=== PATIENT | female | born 2000 | race Two or more races ===

== ENCOUNTER 2025-01-31 12:37 | Emergency (ER) | payer OTHER ==
[~2025-01-31] VITALS: Ht 167.6 cm; Wt 59.4 kg
[2025-01-31 12:45] VITALS: RESP 18
[2025-01-31 12:57] VITALS: TEMP 97.9
--- NOTE | 2025-01-31 13:45 | DVH ---
INDICATION: thinks her IUD is dislodged/ pelvic pain TECHNIQUE: Multiple real-time grayscale transabdominal and transvaginal sonographic images along with color and duplex Doppler of the uterus and ovaries were obtained. COMPARISON: None FINDINGS: The uterus measures 7.0 x 3.7 x 4.1 cm. The endometrial stripe measures 0.3 cm. Intrauterin e device in satisfactory position. Right ovary measures 6.0 x 3.0 x 4.6 cm with normal Doppler color flow Left ovary measures 3.3 x 1.4 x 2.1 cm with normal Doppler color flow Apkb-qn-guwhbbux fluid in the pelvic cul-de-sac. IMPRESSION: Intrauterine device in satisfactory position.
[2025-01-31 14:06] LABS: Basophils # (auto) 0 10 ^3/uL (0-0.2); Basophils % (auto) 0.4 % (0.0-2.0); Eosinophils # (auto) 0 10 ^3/uL (0-0.8); Eosinophils % (auto) 0.2 % (0.0-7.0); Hematocrit 41.8 % (36.0-46.0); Hemoglobin 14.4 g/dL (12.2-16.2); Lymphocytes # (auto) 0.7 10 ^3/uL (0.4-5.4); Lymphocytes % (auto) 11.9 % (10.0-50.0); Mean Corpuscular Hemoglobin 31.1 pg (28.0-32.0); Mean Corpuscular Hgb Conc. 34.5 g/dL (32.0-36.0); Mean Corpuscular Volume 90.2 fL (80.0-100.0); Monocytes # (auto) 0.7 10 ^3/uL (0-1.3); Monocytes % (auto) 11.9 % (0.0-12.0); Neutrophils # (auto) 4.6 10 ^3/uL (1.6-8.6); Neutrophils % (auto) 75.6 % (37.0-80.0); Nucleated Red Blood Cells % 0.1 %; Platelet Count (auto) 94 10^3/uL (140-450); Red Blood Cells 4.63 10^6/uL (4.0-5.20); Red Cell Distribution Width 12.9 % (11.8-14.3); White Blood Cell 6.1 10^3/uL (4.4-10.8)
[2025-01-31 14:07] LABS: Urine Bacteria None Seen /hpf (None Seen)
[2025-01-31 14:14] LABS: Alanine Aminotransferase 14 U/L (7-40); Alkaline Phosphatase 62 U/L (46-116); Anion Gap 10 (5-15); Aspartate Aminotransferase 22 U/L (13-40); BUN/Creatinine Ratio 9.9 (10.0-20.0); Bilirubin, Total 0.9 mg/dL (0.2-1.0); Calcium 10.2 mg/dL (8.7-10.4); Carbon Dioxide 23 mmol/L (20-31); Chloride 106 mmol/L (98-107); Sodium 139 mmol/L (136-145)
[2025-01-31 14:15] LABS: Albumin 4.8 g/dL (3.2-4.8); Blood Urea Nitrogen 8 mg/dL (9-23); Glucose 71 mg/dL (74-106); Potassium 3.5 mmol/L (3.5-5.1)
[2025-01-31 14:19] LABS: Urine Blood Negative /uL (Negative); Urine Clarity Clear (Clear); Urine Color Yellow (Yellow); Urine Hyaline Cast FEW /lpf (0 - 2); Urine Mucus FEW (None Seen); Urine Protein, UAD TRACE (Negative); Urine Specific Gravity 1.022 (1.001-1.035); Urine Squamous Epithelial Cell FEW /hpf (<5); Urine Urobilinogen Normal (Negative); Urine WBC 2 /HPF (0-5)
[2025-01-31 14:27] LABS: Lipase 24 U/L (12-53)
--- NOTE | 2025-01-31 15:04 | ED.PDOC ---
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 - pt states she has been having suprapubic pain for the past 2 days - pt states she has had IUD placed in SEP 2024 and states last night PM, she states she felt the IUD had moved - pt states since, she has been having suprapubic pain, nausea, vomiting, and subjective fever - pt states she also recently had history of STD chlamydia and noted pain during intercourse last night - pt otherwise denies any other symptoms PMH: denies PSH: denies allergies: denies social history: denies ETOH , denies drug use, denies tobacco use Patient currently has a IUD HPI: Poor Historian. Nausea and vomiting yesterday but this has resolved today. She continues to have some nonspecific suprapubic discomfort constant nonradiating. Patient does not have any dysuria however she has suprapubic pain with defecation. Nausea and vomiting has already resolved yesterday. REVIEW OF SYSTEMS: CONSTITUTIONAL: Denies acute: fever, diaphoresis, chills, generalized weakness. HEAD: Denies acute: headache, photophobia Eyes: Denies acute: Double vision, vision loss, eye pain, eye discharge. EARS: Denies acute: tinnitus, hearing loss, ear discharge, ear pain, THROAT: Denies acute: sore throat, swelling, difficulty swallowing , pain with swallowing, change in voice. NECK: Denies acute: neck pain, neck swelling, stiff neck. HEART: Denies acute : chest pain, palpitations, LUNGS: Denies acute: SOB, wheezing, cough, hemoptysis ABDOMEN: Denies acute: diarrhea, melena , hematemesis, hematochezia SKIN: Denies acute: rash, redness, lesions, itchiness. EXTREMITIES: Denies acute: calf pain, numbness, tingling, weakness, denies pain in extremity. Denies acute: Low back pain. Neuro: Denies acute: focal neurological deficit, motor or sensory focal neurological deficit, tremors, seizure like activity, confusion, dizziness, change in mental status, loss of bowel or bladder function, cauda equina like symptoms. : Denies acute: dysuria, hematuria, flank pain, increase in urinary frequency. PSYCH: Denies acute: hallucination, suicidal ideation, homicidal ideation. FEMALE: Denies acute: abnormal vaginal bleeding, foul odor, unusual discharge. PHYSICAL EXAM: General: ----no----acute distress, awake and alert. Head: normocephalic, atraumatic. Neck: supple, trachea is midline, no swelling. Throat: Normal phonation. Eyes:, no erythema, no purulent discharge, no proptosis, no icterus. Heart: regular rate, regular rhythm, no significant murmur appreciated. Lungs: no apparent respiratory distress, Able to speak in full sentences. No wheezing, no rhonchi, no crackles. No stridors Clear to auscultation bilaterally. Abdomen: Suprapubic tender to palpation, non distended, soft, no guarding, no rebound, + bowel sounds. Neuro: Awake, Alert, oriented to name, self, situation, follows commands GCS=15. Speech is normal. Skin: no petechia, no purpura, no cyanosis, non-pale, not jaundice. Lower extremities: --no - Pitting edema no deformity, no focal swelling, no calf TTP. Makes eye contact. moves all four extremities. Face: no apparent facial droop. Ambulating in the ED independently. ED COURSE: Chief Complaint: Pelvic Pain Time Seen by MD: 15:03 Reviewed Notes: Medications, Allergies Allergies: Coded Allergies: NO KNOWN ALLERGIES (Unverified , 01/31/25) Information Source: Patient Mode of Arrival: Ambulatory Was a procedure done? 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) Vaginal Bleeding: Cervicitis, Myomatous Uterus Mass / Lesion: Bartholin Abscess, Bartholin Cyst, Perianal Abscess, Vaginitis - Bacterial, Vaginitis - Candidal Vaginal Discharge: Foreign Body, Physiologic Discharge, PID, Pinworms, , UTI, Vaginitis - Atrophic, Vaginitis - Bacterial, Vaginitis - Candidal, Vaginitis - Contact, Vaginitis - Herpes, Vaginitis - Trichomonas X-Ray, Labs, Meds, VS Vital Signs Date Time Temp Pulse Resp B/P (MAP) Pulse Ox O2 Delivery O2 Flow Rate FiO2 01/31/25 15:20 89 18 122/76 (91) 98 01/31/25 12:57 97.9 100 18 135/93 (107) 100 97.9 01/31/25 12:57 97.9 100 18 135/93 (107) 100 97.9 01/31/25 12:45 18 Room Air* 0 21 Lab Test 01/31/25 13:31 01/31/25 13:00 Range/Units White Blood Count 6.1 4.4-10.8 10^3/uL Red Blood Count 4.63 4.0-5.20 10^6/uL Hemoglobin 14.4 12.2-16.2 g/dL Hematocrit 41.8 36.0-46.0 % Mean Corpuscular Volume 90.2 80.0-100.0 fL Mean Corpuscular Hemoglobin 31.1 28.0-32.0 pg Mean Corpuscular Hemoglobin Concent 34.5 32.0-36.0 g/dL Red Cell Distribution Width 12.9 11.8-14.3 % Platelet Count 94 L 140-450 10^3/uL Mean Platelet Volume 9.9 6.9-10.8 fL Neutrophils (%) (Auto) 75.6 37.0-80.0 % Lymphocytes (%) (Auto) 11.9 10.0-50.0 % Monocytes (%) (Auto) 11.9 0.0-12.0 % Eosinophils (%) (Auto) 0.2 0.0-7.0 % Basophils (%) (Auto) 0.4 0.0-2.0 % Neutrophils # (Auto) 4.6 1.6-8.6 10 ^3/uL Lymphocytes # (Auto) 0.7 0.4-5.4 10 ^3/uL Monocytes # (Auto) 0.7 0-1.3 10 ^3/uL Eosinophils # (Auto) 0 0-0.8 10 ^3/uL Basophils # (Auto) 0 0-0.2 10 ^3/uL Nucleated Red Blood Cells 0.1 % Sodium Level 139 136-145 mmol/L Potassium Level 3.5 3.5-5.1 mmol/L Chloride Level 106 98-107 mmol/L Carbon Dioxide Level 23 20-31 mmol/L Anion Gap 10 5-15 Blood Urea Nitrogen 8 L 9-23 mg/dL Creatinine 0.81 0.550-1.02 mg/dL Glomerular Filtration Rate Calc 104 >90 mL/min BUN/Creatinine Ratio 9.9 L 10.0-20.0 Serum Glucose 71 L 74-106 mg/dL Lactic Acid Level 1.2 0.4-2.0 mmol/L Calcium Level 10.2 8.7-10.4 mg/dL Total Bilirubin 0.9 0.2-1.0 mg/dL Aspartate Amino Transferase (AST) 22 13-40 U/L Alanine Aminotransferase (ALT) 14 7-40 U/L Alkaline Phosphatase 62 46-116 U/L Total Protein 8.0 5.7-8.2 g/dL Albumin 4.8 3.2-4.8 g/dL Lipase 24 12-53 U/L Urine Color Yellow Yellow Urine Clarity Clear Clear Urine pH 6.0 5.0-9.0 Urine Specific [place] 1.022 1.001-1.035 Urine Protein Trace H Negative Urine Ketones 3+ H Negative Urine Blood Negative Negative /uL Urine Nitrite Negative Negative Urine Bilirubin Negative Negative Urine Urobilinogen Normal Negative mg/dL Urine Leukocyte Esterase Negative Negative /uL Urine RBC 1 0 - 4 /hpf Urine Microscopic WBC 2 0-5 /HPF Urine Squamous Epithelial Cells Few <5 /hpf Urine Bacteria None seen None Seen /hpf Urine Hyaline Casts Few 0 - 2 /lpf Urine Mucus Few None Seen Urine Glucose Normal Normal mg/dL Urine Test Negative Negative [place] [id number] Ph: [phone] DIAGNOSTIC IMAGING Diagnostic Imaging Report : [id number] Signed PATIENT: MARCELA EDWARDS ACCT: [id number] UNIT: [id number] : 2000 LOC: ER ROOM / BED: / AGE / SEX: 24 / F ADM STATUS: REG ER SERVICE 1325 ORDERING PHYSICIAN: MARGARITA LENTZ DO PROCEDURE(s): PELTR - TRANSVAGINAL US NON OB REASON: PELVIC PAIN ORDER NUMBER(s): [id number], ACCESSION NUMBER(s): [id number] INDICATION: thinks her IUD is dislodged/ pelvic pain TECHNIQUE: Multiple real-time grayscale transabdominal and transvaginal sonogr aphic images along with color and duplex Doppler of the uterus and ovaries were obtained. COMPARISON: None FINDINGS: The uterus measures 7.0 x 3.7 x 4.1 cm. The endometrial stripe measures 0.3 cm. Intrauterine device in satisfactory position. Right ovary measures 6.0 x 3.0 x 4.6 cm with normal Doppler color flow Left ovary measures 3.3 x 1.4 x 2.1 cm with normal Doppler color flow Mcsz-wy-kbpagvuk fluid in the pelvic cul-de-sac. IMPRESSION: Intrauterine device in satisfactory position. ATED BY: NORTH REYNA MD DICTATED DATE/TIME: 01/31/25 134 SIGNED BY: NORTH REYNA MD SIGNED DATE/TIME: 01/31/251341 CC: [place] [id number] Ph: [phone] DIAGNOSTIC IMAGING Diagnostic Imaging Report : [id number] Signed PATIENT: MARCLEA EDWARDS ACCT: [id number] UNIT: [id number] : 2000 LOC: ER ROOM / BED: / AGE / SEX: 24 / F ADM STATUS: REG ER SERVICE 1305 ORDERING PHYSICIAN: MARGARITA LENTZ DO PROCEDURE(s): PELUS - PELVIC REASON: thinks her IUD is dislodged/ pelvic pain ORDER NUMBER(s): [id number], ACCESSION NUMBER(s): [id number] INDICATION: thinks her IUD is dislodged/ pelvic pain TECHNIQUE: Multiple real-time grayscale transabdominal and transvaginal sonographic images along with color and duplex Doppler of the uterus and ovaries were obtained. COMPARISON: None FINDINGS: The uterus measures 7.0 x 3.7 x 4.1 cm. The endometrial stripe measures 0.3 cm. Intrauterine device in satisfactory position. Right ovary measures 6.0 x 3.0 x 4.6 cm with normal Doppler color flow Left ovary measures 3.3 x 1.4 x 2.1 cm with normal Doppler color flow Xqta-ss-mtsymguj fluid in the pelvic cul-de-sac. IMPRESSION: Intrauterine device in satisfactory position. ATED BY: NORTH REYNA MD DICTATED DATE/TIME: 01/31/251341 SIGNED BY: NORTH REYNA MD SIGNED DATE/TIME: 01/31/251341 CC: Time of 1ST Reevaluation: 00:00 Reevaluation 1ST: Unchanged Patient Education/Counseling: Diagnosis, Treatment Family Education/Counseling: No Family Present Comments Patient presented with the above HPI.--suprapubic/pelvic pain----workup was initiated. patient was found with the above mentioned diagnosis. the following medications were ordered: please refer to order lists of meds and tests obtained by myself Dr. Lentz. Patient ED course and VS have been stabilized. Patient has been reassessed in the ED and remained in a stable condition. Pertinent incidental findings were discussed with the patient and/or family. Patient/family voices understanding and is agreeable with plan. Patient has been observed in the ED adequate length of time to insure improvement/stability. Escalation of care considered: Consideration of escalation to observation or admission Patient is mainly concerned that her IUD is not in position. Imaging studies re veals no acute findings. Patient was DISCHARGED home in a stable condition. All the reports of any imaging studies that were ordered by myself were reviewed by myself. Departure 1 Departure Time of Disposition: 16:27 Impression: Primary Impression: Suprapubic pain, acute Disposition: 01 HOME / SELF CARE / HOMELESS Condition: Stable Additional Instructions: Additional instructions: You MUST follow-up with your primary care/family doctor in 1 to 2 days. If you are unable to see your primary care/family doctor, please return to our emergency room for re-assessment and re-evaluation in 1 to 2 days. Return to the emergency room here in our facility or to the nearest ER [facility] if your symptoms change or worsen. CONSULTATIONS: you MUST Follow-up for consultation as soon as possible with: -OB Gyne doctor in 1-2 days. Please call for appointment You MUST call the consultants office yourself to make an appointment. You may need to arrange that through your insurance and/or your primary/family doctor. If you are unable to see the lending consultant in 1 to 2 days, you must return to our emergency room (or any other ER of your choice) for re-assessment and re- evaluation. Adequate fluid hydration. Pelvic rest. Below is a copy of your radiological report for follow up: [place] [id number] Ph: [phone] DIAGNOSTIC IMAGING Diagnostic Imaging Report : [id number] Signed PATIENT: MARCELA EDWARDS ACCT: [id number] UNIT: [id number] : 2000 LOC: ER ROOM / BED: / AGE / SEX: 24 / F ADM STATUS: REG ER SERVICE 1325 ORDERING PHYSICIAN: MARGARITA LENTZ DO PROCEDURE(s): PELTR - TRANSVAGINAL US NON OB REASON: PELVIC PAIN ORDER NUMBER(s): [id number], ACCESSION NUMBER(s): [id number] INDICATION: thinks her IUD is dislodged/ pelvic pain TECHNIQUE: Multiple real-time grayscale transabdominal and transvaginal sonographic images along with color and duplex Doppler of the uterus and ovaries were obtained. COMPARISON: None FINDINGS: The uterus measures 7.0 x 3.7 x 4.1 cm. The endometrial stripe measures 0.3 cm. Intrauterine device in satisfactory position. Right ovary measures 6.0 x 3.0 x 4.6 cm with normal Doppler color flow Left ovary measures 3.3 x 1.4 x 2.1 cm with normal Doppler color flow Voos-wc-hzpuinll fluid in the pelvic cul-de-sac. IMPRESSION: Intrauterine device in satisfactory position. ATED BY: NORTH REYNA MD DICTATED DATE/TIME: 01/31/25 1342 SIGNED BY: NORTH REYNA MD SIGNED DATE/TIME: 01/31/25 1342 CC: [place] [phone] Ph: [phone] DIAGNOSTIC IMAGING Diagnostic Imaging Report : [id number] Signed PATIENT: MARCELA EDWARDS ACCT: [id number] UNIT: [id number] : 2000 LOC: ER ROOM / BED: / AGE / SEX: 24 / F ADM STATUS: REG ER SERVICE 1305 ORDERING PHYSICIAN: MARGARITA LENTZ DO PROCEDURE(s): PELUS - PELVIC REASON: thinks her IUD is dislodged/ pelvic pain ORDER NUMBER(s): [id number], ACCESSION NUMBER(s): [id number] INDICATION: thinks her IUD is dislodged/ pelvic pain TECHNIQUE: Multiple real-time grayscale transabdominal and transvaginal sonographic images along with color and duplex Doppler of the uterus and ovaries were obtained. COMPARISON: None FINDINGS: The uterus measures 7.0 x 3.7 x 4.1 cm. The endometrial stripe measures 0.3 cm. Intrauterine device in satisfactory position. Right ovary measures 6.0 x 3.0 x 4.6 cm with normal Doppler color flow Left ovary measures 3.3 x 1.4 x 2.1 cm with normal Doppler color flow Qfap-po-oemtbdqy fluid in the pelvic cul-de-sac. IMPRESSION: Intrauterine device in satisfactory position. ATED BY: NORTH REYNA MD DICTATED DATE/TIME: 01/31/25 1342 SIGNED BY: NORTH REYNA MD SIGNED DATE/TIME: 01/31/25 1342 CC: Discharged With: Self Critical Care Note Critical Care Time?: No I personally scribed for MARGARITA LENTZ DO ([email or web address]) on 01/31/25 at 15:04. Electronically submitted by Angelique JAIMES). MARGARITA LENTZ DO Jan 31, 2025 15:04
[2025-01-31 15:20] VITALS: BP 122/76; PULSE 89; RESP 18; O2SAT 98
[2025-01-31] MEDS: KETOROLAC TROMETH 60MG/2ML VIAL IM ONE (15:28)
== END 2025-01-31 16:35 | disposition home or self-care (01) ==
LOC: ER 12:43
DX: R10.30 Lower abdominal pain, unspecified (principal)
CPT/HCPCS: 36415; 76830; 76856; 80053; 81001; 81025; 83605; 83690; 85025; 96372; 99285; J1885